=== PATIENT | female | born 1995 | race Caucasian/White ===

== ENCOUNTER 2017-10-06 20:15 | Emergency (ER) | payer MEDICAID ==
[~2017-10-06] VITALS: Ht 167.6 cm; Wt 165.7 kg
[~2017-10-06 20:15] MED LIST: ALBU6.7H INH; AZIT250T PO; HYDR28.472 TOP
[2017-10-06 20:19] VITALS: BP 144/109
[2017-10-06] MEDS ORDERED: DOXY100C43 PO (21:03)
== END 2017-10-06 21:14 | disposition home or self-care (01) ==
LOC: ER 20:16
DX: N76.4 Abscess of vulva (principal); H92.02 Otalgia, left ear; Z79.899 Other long term (current) drug therapy
CPT/HCPCS: 99283

== ENCOUNTER 2020-08-24 06:59 | Emergency (ER) | payer MEDICAID ==
[~2020-08-24] VITALS: Ht 167.6 cm; Wt 7.5 kg
[~2020-08-24 06:59] MED LIST changes: -ALBU6.7H INH; +ALBU6.7H9 INH
--- NOTE | 2020-08-24 08:10 | NUR ---
ASSISTED WITH DR CID FOR PELVIC EXAMINATION ,PT HAS CERVIX SWELLING ,NO DISCHARGE ,TENDER TO TOUCH .PT ON MENSTRUAL PEROID.
[2020-08-24] MEDS ORDERED: azithromycin 250mg tablet PO ONE (08:35)
[2020-08-24] MEDS ORDERED: metroNIDAZOLE 500mg tablet PO ONE (08:35)
[2020-08-24] MEDS ORDERED: CefTRIAXone 1000mg IM Kit (w/lidocaine diluent) IM ONE (08:35)
[2020-08-24] MEDS ORDERED: CLE2VCR VG (08:39)
[2020-08-24 10:39] VITALS: BP 144/85
== END 2020-08-24 09:00 | disposition home or self-care (01) ==
LOC: ER 06:59
DX: N72 Inflammatory disease of cervix uteri (principal); F41.9 Anxiety disorder, unspecified
CPT/HCPCS: 96372; 99284; J0696; 99283; J3490